=== PATIENT | male | born 1960 | race African-American/Black ===

== ENCOUNTER 2021-09-17 16:24 | Emergency (ER) | payer MEDICAID ==
[~2021-09-17] VITALS: Ht 182.9 cm; Wt 67.6 kg
[2021-09-17 16:29] VITALS: BP 117/73
[2021-09-17] MEDS ORDERED: ONDANSETRON 4 MG/2 ML VIAL IVP ONE (16:40)
[2021-09-17] MEDS ORDERED: PHENYTOIN 100 MG/2 ML VIAL IVP ONE (16:40)
[2021-09-17] MEDS ORDERED: ASPIRIN 325 MG TABEC PO SCH (16:40)
[2021-09-17] MEDS ORDERED: MORPHINE SULFATE 4 MG/ML SYR IVP ONE (16:40)
[2021-09-17] MEDS ORDERED: NACL 0.9% 1,000 ML IV ONE (16:40)
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
[2021-09-17] MEDS ORDERED: PHENYTOIN 100 MG CAPER PO ONE (17:05)
[2021-09-17] MEDS ORDERED: ACETAMINOPHEN EXTRA STRENGTH 500 MG TAB PO ONE (17:05)
[2021-09-17 17:23] LABS: HEMATOCRIT 39.5 % (36-52); HEMOGLOBIN 13.2 g/dL (12.0-18.0); LYMPHOCYTES # (AUTO) 1.3 K/uL (2.0-11.5); LYMPHOCYTES % (AUTO) 43.6 % (20.5-51.1); MEAN CORPUSCULAR HEMOGLOBIN 29 pg (27-31); MEAN CORPUSCULAR HGB CONC 33 g/dL (33-37); MEAN CORPUSCULAR VOLUME 85.8 fL (80-94); MONOCYTES # (AUTO) 0.2 K/uL (0.8-1.0); MONOCYTES % (AUTO) 7.8 % (1.7-9.3); NEUTROPHILS # (AUTO) 1.4 K/uL (1.8-7.7); NEUTROPHILS % (AUTO) 48.6 % (42.2-75.2); PLATELET COUNT (AUTO) 149 K/uL (140-450); RED BLOOD CELL COUNT(AUTO) 4.61 MIL/uL (4.20-6.10); RED CELL DISTRIBUTION WIDTH 23.6 % (11.6-13.7); WHITE BLOOD COUNT (AUTO) 2.9 K/uL (4.8-10.8)
--- NOTE | 2021-09-17 17:30 | NUR ---
PATIENT STATES HE IS UNABLE TO PROVIDE URINE AT THIS TIME. DR. SCHULER MADE AWARE.
[2021-09-17 17:57] LABS: ALBUMIN 4.1 g/dL (3.4-5.0); ANION GAP 14.2 (8-16); CARBON DIOXIDE 26.8 mmol/L (21-32); TOTAL BILIRUBIN 0.5 mg/dL (0.0-1.0)
[2021-09-17 18:27] LABS: PHENYTOIN (DILANTIN) 0.8 ug/ml (10.0-20.0)
--- NOTE | 2021-09-17 18:40 | NUR ---
PATIENT STATES HE IS STILL UNABLE TO PROVIDE URINE AT THIS TIME. DR. SCHULER MADE AWARE.
--- NOTE | 2021-09-17 19:18 | NUR ---
Pt report given to RUSLAN JETT. Transfer of care at this time.
[2021-09-17] MEDS ORDERED: DILT-135 PO (21:33)
[2021-09-17] MEDS ORDERED: DIGO-81 PO (21:33)
[2021-09-17] MEDS ORDERED: PHEN100C3 PO (21:33)
[2021-09-17] MEDS ORDERED: ACET-2619 PO (21:34)
--- NOTE | 2021-09-17 21:43 | NUR ---
X-Ray at bedside.
[2021-09-17] MEDS ORDERED: ONDA-188 PO (21:49)
[2021-09-17] MEDS ORDERED: ONDANSETRON 4 MG ODT PO ONE (21:50)
[2021-09-17 23:00] VITALS: BP 127/78
--- NOTE | 2021-09-17 23:00 | NUR ---
Patient discharged with v/s stable. Written and verbal after care instructions given and explained. Patient alert, oriented and verbalized understanding of instructions. Wheel Chair Assisted with steady gait. All questions addressed prior to discharge. ID band removed. Patient advised to follow up with PMD. Rx of TYLENOL,DIGOXIN,CARDIZEM,DILANTIN given. Patient educated on indication of medication including possible reaction and side effects. Opportunity to ask questions provided and answered.
== END 2021-09-17 23:00 | disposition home or self-care (01) ==
LOC: MED 16:24
DX: S13.9XXA Sprain of joints and ligaments of unspecified parts of neck, initial encounter (principal); R07.89 Other chest pain; R56.9 Unspecified convulsions; F32.9 Major depressive disorder, single episode, unspecified; I25.2 Old myocardial infarction; I48.91 Unspecified atrial fibrillation; Z85.028 Personal history of other malignant neoplasm of stomach; Z85.07 Personal history of malignant neoplasm of pancreas; Z79.899 Other long term (current) drug therapy; Z88.0 Allergy status to penicillin; Z88.8 Allergy status to other drugs, medicaments and biological substances; Z98.890 Other specified postprocedural states; W18.39XA Other fall on same level, initial encounter; Y92.89 Other specified places as the place of occurrence of the external cause; Y93.89 Activity, other specified; Y99.8 Other external cause status
CPT/HCPCS: 70450; 71045; 72125; 80053; 80185; 84484; 85025; 93005; 99285; Q0092

== ENCOUNTER 2022-05-30 19:47 | Emergency (ER) | payer MEDICAID ==
[~2022-05-30] VITALS: Ht 167.6 cm; Wt 72.6 kg
[~2022-05-30 19:47] MED LIST: ACET-2619 PO; DIGO-81 PO; DILT-135 PO; ONDA-188 PO; PHEN100C3 PO
[2022-05-30 19:51] VITALS: BP 112/74
--- NOTE | 2022-05-30 19:51 | NUR ---
TO JENNIFER DENNIS WITH C/O GEN WEAKNESS, LEG, ARM , CHEST PAIN. HE WAS JUST D/C [facility]
--- NOTE | 2022-05-30 20:40 | NUR ---
62/M BIBA C/O GENERALIZED WEAKNESS AND GENERAL PAIN. PER PATIENT HE AHS ALOT OF CHRONIC ISSUES. PATIENT STATED THAT HE JUST GOT DISCHARGED FROM [facility] THE DAY PRIOR. PATIENT WAS READY TO BE DISCHARGE AND STARTED STATING SUICIDAL IDIATION DUE TO WANTING A BED. MARY JANE VALDES WAS CALLED. MARY JANE VALDES PUT HIM ON 5150 , PATIENT STATED HIS BROTHER , AND HAVING SUICIDAL THOUGHTS, AND WANTED TO JUMP OFF ON THE BRIDGE OR WALK INFRONT OF A BUS. MADE AWARE. AAOX4, AMBLE TO AMBULATE WITH ASSISTANCE AND W/C. ALLERGIES PNC, IODINE
--- NOTE | 2022-05-30 20:42 | NUR ---
Brina VALDES spoke with patient.
--- NOTE | 2022-05-30 20:45 | NUR ---
MARY JANE VALDES PUT HIM ON 2900 , PATIENT STATED HIS BROTHER , AND HAVING SUICIDAL THOUGHTS, AND WANTED TO JUMP OFF ON THE BRIDGE OR WALK INFRONT OF A BUS.
[2022-05-30] MEDS ORDERED: KETOROLAC 15 MG/ML VIAL IVP ONE (22:00)
[2022-05-30] MEDS ORDERED: NACL 0.9% 1,000 ML IV ONE (22:00)
[2022-05-30] MEDS ORDERED: ONDANSETRON 4 MG/2 ML VIAL IVP ONE (22:00)
--- NOTE | 2022-05-30 22:00 | NUR ---
PATIENT REFUSED IVF AND MEDS. MADE AWARE.
--- NOTE | 2022-05-30 22:00 | NUR ---
LAB AT [facility]. PATIENT REFUSED BECAUSE "HE NEEDED TO DRINK WATER FIRST." MD AWARE. WILL TRY IN 30 MIN
--- NOTE | 2022-05-30 22:00 | NUR ---
KELVIN COLLECTED AND WALKED TO LAB
--- NOTE | 2022-05-30 22:40 | NUR ---
LAB ATTEMPTED TO COLLECTED BLOOD WITH NO SUCCESS. MADE AWARE
--- NOTE | 2022-05-31 00:51 | NUR ---
PATIENT ON TELEPSYCH
--- NOTE | 2022-05-31 01:15 | NUR ---
SPOKE TO PSYCH . STATED PATIETN IS CLEARED AND OKAY TO BE DISCHARGED IN THE MORNING. PSYCH TRANSFERRED TO MD PALMER.
[2022-05-31] MEDS ORDERED: QUEtiapine FUMARATE 25 MG TAB PO SCH (01:55)
[2022-05-31] MEDS ORDERED: ONDANSETRON 4 MG ODT PO ONE (01:55)
--- NOTE | 2022-05-31 02:17 | NUR ---
PER SIN. DISCONTINUE IV MEDS AND FLUIDS. NEW ORDERS PLACED. MEDICATED ORDERED
--- NOTE | 2022-05-31 04:36 | NUR ---
PATIENT RESTING IN BED WITH EYES CLOSED. RR APPEAR TO BE EVEN AND UNLABORED. SIDE RAILS UP NATALIYA. BED LOW AND LOCKED ALL NEEDS MET.
[2022-05-31 05:40] VITALS: BP 110/70
--- NOTE | 2022-05-31 05:40 | NUR ---
PROVIDED PATIENT WITH CLEAN CLOTHES AND FOOD FOR DISCHARGE
--- NOTE | 2022-05-31 05:40 | NUR ---
ASSISTED PATIENT WITH CHANGING INTO CLEAN CLOTHES.
--- NOTE | 2022-05-31 05:41 | NUR ---
Patient discharged with v/s stable. Written and verbal after care instructions given and explained. Patient verbalized understanding. Wheel Chair Assisted with steady gait. All questions addressed prior to discharge. Advised to follow up with PMD. JAMA PROVIDED WITH RESOURCES TO FOLLOW UP WITH BY MD PALMER. JAMA IS AAOX4, AMBULATORY WITH ASSISTANCE TO HIS W/C.
== END 2022-05-31 05:41 | disposition home or self-care (01) ==
LOC: MED 19:47
DX: R11.2 Nausea with vomiting, unspecified (principal); Z20.822 Contact with and (suspected) exposure to COVID-19; F32.9 Major depressive disorder, single episode, unspecified; R42 Dizziness and giddiness; I25.2 Old myocardial infarction; J45.909 Unspecified asthma, uncomplicated; Z76.5 Malingerer [conscious simulation]; Z88.0 Allergy status to penicillin; Z88.8 Allergy status to other drugs, medicaments and biological substances; Z79.899 Other long term (current) drug therapy; Z85.028 Personal history of other malignant neoplasm of stomach
CPT/HCPCS: 71045; 87426; 93005; 99285; Q0162

== ENCOUNTER 2022-10-03 18:48 | Emergency (ER) | payer MEDICAID ==
[~2022-10-03] VITALS: Ht 180.3 cm; Wt 79.4 kg
[2022-10-03 19:14] VITALS: BP 134/77
--- NOTE | 2022-10-03 22:40 | NUR ---
Dr. Rajput examining patient.
--- NOTE | 2022-10-03 23:39 | NUR ---
Patient returned back from CT scan via .
[2022-10-04 01:18] VITALS: BP 145/78
--- NOTE | 2022-10-04 01:18 | NUR ---
Patient discharged with v/s stable. Written and verbal after care instructions given and explained. Patient verbalized understanding. Wheel Chair Assisted with to car. All questions addressed prior to discharge. Advised to follow up with PMD.
== END 2022-10-04 01:18 | disposition home or self-care (01) ==
LOC: MED 18:48
DX: F10.129 Alcohol abuse with intoxication, unspecified (principal); F19.10 Other psychoactive substance abuse, uncomplicated; G40.909 Epilepsy, unspecified, not intractable, without status epilepticus; J45.909 Unspecified asthma, uncomplicated; I25.2 Old myocardial infarction; Z85.028 Personal history of other malignant neoplasm of stomach
CPT/HCPCS: 70450; 93005; 99284